=== PATIENT | female | born 1980 | race Caucasian/White ===

== ENCOUNTER 2016-07-30 09:11 | Day surgery (SDC) | payer MEDICAID ==
[2016-07-30] MEDS ORDERED: LR 1,000 ML IV SCH (10:00)
--- NOTE | 2016-07-30 10:24 | PDGENHP ---
History & Physical Chief Complaint: hx maltoma History of Present Illness: hx maltoma Pertinent Past, Social, Family History: reviewed Relevant Physical Exam: NAD. RRR. ctab. s/nt/nd/+bs
--- NOTE | 2016-07-30 10:48 | PDANEPAE ---
ANE History of Present Illness Patient presents for Colonoscopy ANE Past Medical History - Cardiovascular History Hx Hypertension: No Hx Arrhythmias: No Hx Chest Pain: No Hx Coronary Artery / Peripheral Vascular Disease: No Hx CHF / Valvular Disease: No Hx Palpitations: No - Pulmonary History Hx COPD: No Hx Asthma/Reactive Airway Disease: No Hx Recent Upper Respiratory Infection: No Hx Oxygen in Use at Home: No - Neurologic History Hx Cerebrovascular Accident: No Hx Seizures: No Hx Dementia: No - Endocrine History Hx Diabetes: No - Renal History Hx Renal Disorders: No - Liver History Hx Hepatic Disorders: No - Neurological & Psychiatric Hx Hx Neurological and Psychiatric Disorders: No - Cancer History Hx Cancer: No - Congenital Disorder History Hx Congenital Disorders: No - GI History Hx Gastrointestinal Disorders: Yes - Chronic Pain History Chronic Pain: No ANE Review of Systems - Exercise capacity METS (RN): 5 METS ANE Patient History - Allergies Allergies/Adverse Reactions: No Known Allergies Allergy (Unverified 07/30/16 09:43) - Home Medications Home Medications: Herbals/Supplements -Info Only 07/22/16 [Last Taken 07/23/16] NK [No Known Home Meds] 07/22/16 [Last Taken Unknown] - NPO status NPO Since - Liquids (Date): 07/29/16 NPO Since - Liquids (Time): 00:00 NPO Since - Solids (Date): 07/29/16 NPO Since - Solids (Time): 09:00 - Smoking Hx Smoking Status: Never smoked - Family Anes Hx Family Hx Anesthesia Complications: NEG ANE Labs/Vital Signs - Vital Signs Blood Pressure: 112/81 Heart Rate: 71 Respiratory Rate: 71 O2 Sat (%): 94 Height: 156.21 cm Weight: 60.328 kg ANE Physical Exam - Airway Neck exam: FROM Mallampati Score: Class 1 Mouth exam: normal dental/mouth exam - Pulmonary Pulmonary: no respiratory distress - Cardiovascular Cardiovascular: regular rate and rhythym - ASA Status ASA Status: I ANE Anesthesia Plan Anesthesia Plan: GA with mask (RBA discussed)
[2016-07-30] MEDS ORDERED: PROPOFOL/EMULSION 500 MG/50 ML BOTTLE IV ONE (10:54)
[2016-07-30] MEDS ORDERED: ONDANSETRON 4 MG/2 ML VIAL IVP PRN (10:57)
[2016-07-30] MEDS ORDERED: NALOXONE HCL 0.4 MG/ML INJ IVP PRN (10:57)
--- NOTE | 2016-07-30 11:20 | POSTANESTH ---
Post Anesthetic Evaluation Cardiovascular Status: Normal, Stable Respiratory Status: Normal, Stable Level of Consciousness/Mental Status: Can Participate in Eval Pain Control: Adequate, Prn Tx Ordered Nausea/Vomiting Control: Adequate, Prn Tx Ordered Complications Possibly Related to Anesthesia: None Noted
[2016-07-30 11:32] VITALS: TEMP 97.5
[2016-07-30 11:35] VITALS: RESP 12
[2016-07-30 11:50] VITALS: BP 112/77; PULSE 64; O2SAT 94
--- NOTE | 2016-07-30 20:44 | GPN ---
[f rep st] PROCEDURE NOTE DATE OF PROCEDURE: 07/30/2016 PROCEDURE: Colonoscopy with biopsy. INDICATIONS: Diarrhea. INFORMED CONSENT: Informed consent was obtained from the patient after a thorough explanation of risks, benefits, and alternatives to the procedure. MEDICATIONS GIVEN: Per Anesthesia. DESCRIPTION OF EXAM: After adequate sedation was achieved, the colonoscope was advanced under direct vision through the anal orifice and as far as the cecum and terminal ileum. Photographic documentation was taken of the appendiceal orifice and terminal ileum. Retroflexion was performed in ascending colon and the rectum. Findings as below. Views were excellent. Prep was excellent. Patient toleration was excellent. COMPLICATIONS: None. ESTIMATED BLOOD LOSS: None. FINDINGS: 1. Terminal ileum: Normal. Approximately 15 cm able to be examined without difficulty. 2. Colon: Normal with no obvious colitis or mucosal disease. 3. Random biopsies were taken from throughout the entire colon and rectum to assess for microscopic colitis. IMPRESSION: No source of diarrhea was seen on this exam, although biopsies are pending for microscopic colitis. RECOMMENDATIONS: 1. Await biopsy results. 2. Discharge home with regular diet and resume regular activities tomorrow. 3. Follow up in the GI office in 1 month. /[id number]/MODL MTDD
== END 2016-07-30 12:02 | disposition home or self-care (01) ==
LOC: FSGY 09:11
PROVIDERS: ATTEND Internal Medicine
PROC: 0DBE8ZX Excision of Large Intestine, Via Natural or Artificial Opening Endoscopic, Diagnostic (ICD-10-PCS; principal; 2016-07-30 10:30)
PROC: 0DBP8ZX Excision of Rectum, Via Natural or Artificial Opening Endoscopic, Diagnostic (ICD-10-PCS; principal; 2016-07-30 10:30)
DX: K52.832 Lymphocytic colitis (principal)
CPT/HCPCS: J2704